=== PATIENT | male | born 1955 | race African-American/Black ===

== ENCOUNTER 2022-10-25 08:02 | Outpatient (CLI) | payer MEDICARE, BC | END 2022-10-25 08:03 | disposition home or self-care (01) | LOC: BICULT 08:02 | PROVIDERS: ATTEND Internal Medicine Nephrology | DX: I12.9 Hypertensive chronic kidney disease with stage 1 through stage 4 chronic kidney disease, or unspecified chronic kidney disease (principal); N28.1 Cyst of kidney, acquired; N18.9 Chronic kidney disease, unspecified | CPT/HCPCS: 76770; 93975 ==

== ENCOUNTER 2024-07-07 09:11 | Inpatient (IN) | payer MEDICARE ==
[2024-07-07] MEDS ORDERED: Lorazepam 2 MG/ML VIAL ONE (09:38)
[2024-07-07] MEDS ORDERED: hydrALAZINE 20 MG/ML VIAL ONE ×2 (09:38→14:05)
[2024-07-07 10:00] LABS: #Basophils 0.04 10x3/uL (0.0-0.2); %Basophils 0.5 % (0.0-1.0); %Eosinophils 4.4 % (0.0-10.0); %Monocytes 9.5 % (0.0-10.0); %Neutrophils 51.3 % (42.0-75.0); Hematocrit 25.7 % (42.0-52.0); Hemoglobin 8.3 g/dL (14.0-18.0); Mean Corpuscular HGB CONC 32.3 g/dL (32.0-36.0); Mean Corpuscular Hemoglobin 24.9 pg (27.0-31.0); Mean Corpuscular Volume 76.9 fL (78.0-98.0); Mean Platelet Volume 10.3 fL (7.4-10.4); Platelet Count 192 10x3/uL (130-400); RBC Distribution Width 19.9 % (11.5-14.5); Red Blood Cell (RBC) Count 3.34 mill/uL (4.70-6.10)
[2024-07-07 10:18] LABS: ALT (SGPT) 6 U/L (8-55); AST (SGOT) 7 U/L (5-34); Albumin 3.6 g/dL (3.4-4.8); Alkaline Phosphatase 45 U/L (40-110); Anion Gap 16 mmol/L (10-20); BUN (Urea Nitrogen) 77 mg/dL (8.4-25.7); Bilirubin, Total 0.4 mg/dL (0.2-1.2); Calc. Creatinine Clearance 0 mL/min (70-130); Carbon Dioxide 15 mmol/L (23-31); Chloride 110 mmol/L (98-107); Estimated GFR 7; Globulin 3.3 g/dL (2.4-3.5); Glucose 107 mg/dL (83-110); Lipase 27 U/L (8-78); Potassium 3.3 mmol/L (3.5-5.1); Protein, Total 6.9 g/dL (5.8-8.1); Sodium 138 mmol/L (136-145)
[2024-07-07 10:20] LABS: Troponin I 0.083 ng/mL (< 0.028)
[2024-07-07] MEDS ORDERED: Acetaminophen 325 MG TAB PO PRN (10:52)
[2024-07-07] MEDS ORDERED: Ondansetron ODT 4 MG TAB PO PRN (10:52)
[2024-07-07] MEDS ORDERED: Calcium Carbonate 500 MG ChewTAB PO PRN (10:52)
[2024-07-07] MEDS ORDERED: HYDROcodone/Acetaminophen 7.5/325 mg Tablet ONE (15:05)
[2024-07-07] MEDS: HYDROcodone/Acetaminophen 7.5/325 mg Tablet PO PRN (15:08)
[2024-07-07] MEDS: hydrALAZINE 20 MG/ML VIAL SLOW IVP PRN (15:09)
[2024-07-07 17:45] VITALS: BMI 20.9
[2024-07-07] MEDS: Minoxidil 10 MG TAB PO SCH (18:38)
[2024-07-07] MEDS: ALPRAZolam 1 MG TAB PO PRN (22:31)
[2024-07-08 04:49] LABS: #Basophils Less than 0.03 10x3/uL (0.0-0.2); %Basophils 0.3 % (0.0-1.0); %Eosinophils 2.8 % (0.0-10.0); %Lymphocytes 26.2 % (21.0-51.0); %Monocytes 7.7 % (0.0-10.0); %Neutrophils 62.7 % (42.0-75.0); Hematocrit 26.1 % (42.0-52.0); Hemoglobin 8.3 g/dL (14.0-18.0); Mean Corpuscular HGB CONC 31.8 g/dL (32.0-36.0); Mean Corpuscular Hemoglobin 24.9 pg (27.0-31.0); Mean Corpuscular Volume 78.4 fL (78.0-98.0); Mean Platelet Volume 10.4 fL (7.4-10.4); Platelet Count 171 10x3/uL (130-400); RBC Distribution Width 20.2 % (11.5-14.5); Red Blood Cell (RBC) Count 3.33 mill/uL (4.70-6.10)
[2024-07-08 04:52] LABS: Phosphorus 5.7 mg/dL (2.3-4.7)
[2024-07-08 04:56] LABS: ALT (SGPT) 6 U/L (8-55); AST (SGOT) 7 U/L (5-34); Albumin 3.2 g/dL (3.4-4.8); Alkaline Phosphatase 42 U/L (40-110); Anion Gap 17 mmol/L (10-20); BUN (Urea Nitrogen) 83 mg/dL (8.4-25.7); Bilirubin, Total 0.4 mg/dL (0.2-1.2); Calc. Creatinine Clearance 8 mL/min (70-130); Calcium 8.6 mg/dL (7.8-10.44); Carbon Dioxide 14 mmol/L (23-31); Chloride 110 mmol/L (98-107); Estimated GFR 6; Glucose 90 mg/dL (83-110); Potassium 3.4 mmol/L (3.5-5.1); Protein, Total 6.2 g/dL (5.8-8.1); Sodium 138 mmol/L (136-145)
[2024-07-08] MEDS: Tuberculin PPD 0.1 ML SYRINGE (10 TEST VIAL) I-DERMAL SCH (05:01)
[2024-07-08 05:19] LABS: HBSAB Concentration Less than 8.00 mIU/mL; HBsAg Index 0.32 S/CO (0-0.99); Hep B Core Total Ab NONREACTIVE (NonReactive); Hep B Core Total Index 0.12 S/CO (0-0.79); Hep B Surf AB NONREACTIVE (NonReactive); Hep B Surf Ag NONREACTIVE S/CO (NonReactive); Hep C IgG Ab NONREACTIVE S/CO (NonReactive); Hep C Index 0.21 S/CO (0-0.79)
[2024-07-08] MEDS ORDERED: Ferrous Sulfate 325 MG TAB PO SCH (08:00)
[2024-07-08] MEDS: Sevelamer Carbonate 800 MG TAB PO SCH (08:43)
[2024-07-08] MEDS: Ferrous Sulfate 325 MG TAB PO SCH (08:52)
[2024-07-08] MEDS: Calcitriol 0.25 MCG CAP PO SCH (08:52)
[2024-07-08] MEDS: Minoxidil 10 MG TAB PO SCH (08:52)
[2024-07-08] MEDS: Lisinopril 20 MG TAB PO SCH (08:52)
[2024-07-08] MEDS: Amlodipine 5 MG TAB PO SCH (08:52)
[2024-07-08] MEDS ORDERED: Chlorthalidone 25 MG TAB PO SCH (09:00)
[2024-07-08] MEDS ORDERED: Lisinopril 10 MG TAB PO SCH (09:00)
[2024-07-08] MEDS: Atenolol 50 MG TAB PO SCH ×2 (10:15→10:38)
[2024-07-08 11:02] VITALS: BMI 20.9
[2024-07-08] MEDS: EPOETIN ALFA-EPBX (ESRD) 10,000 UNITS/ML VIAL SC SCH (11:36)
[2024-07-09 05:10] LABS: #Basophils Less than 0.03 10x3/uL (0.0-0.2); %Basophils 0.3 % (0.0-1.0); %Eosinophils 2.3 % (0.0-10.0); %Lymphocytes 29.7 % (21.0-51.0); %Monocytes 9.8 % (0.0-10.0); %Neutrophils 57.7 % (42.0-75.0); Hemoglobin 7.7 g/dL (14.0-18.0); Mean Corpuscular HGB CONC 32.1 g/dL (32.0-36.0); Mean Corpuscular Hemoglobin 24.8 pg (27.0-31.0); Mean Corpuscular Volume 77.4 fL (78.0-98.0); Mean Platelet Volume 10.2 fL (7.4-10.4); Platelet Count 168 10x3/uL (130-400); RBC Distribution Width 20.3 % (11.5-14.5)
[2024-07-09 06:06] LABS: Anion Gap 18 mmol/L (10-20); BUN (Urea Nitrogen) 87 mg/dL (8.4-25.7); Calc. Creatinine Clearance 7 mL/min (70-130); Calcium 8.5 mg/dL (7.8-10.44); Carbon Dioxide 15 mmol/L (23-31); Chloride 108 mmol/L (98-107); Estimated GFR 5; Glucose 108 mg/dL (83-110); Potassium 3.2 mmol/L (3.5-5.1); Sodium 138 mmol/L (136-145)
[2024-07-09] MEDS: Atenolol 50 MG TAB PO SCH (07:58)
[2024-07-09] MEDS: FLU (Fluad Triv) TS24-25 (65UP)/MF59C/PF 45 MCG/0.5 ML Syringe IM ONE (07:59)
[2024-07-09] MEDS ORDERED: Heparin 10,000 UNITS/ 10 ML VIAL ONE (10:49)
[2024-07-10 04:04] LABS: #Basophils 0.03 10x3/uL (0.0-0.2); %Basophils 0.4 % (0.0-1.0); %Eosinophils 3.1 % (0.0-10.0); %Lymphocytes 24.5 % (21.0-51.0); %Monocytes 11.2 % (0.0-10.0); %Neutrophils 60.5 % (42.0-75.0); Hematocrit 23.8 % (42.0-52.0); Hemoglobin 7.5 g/dL (14.0-18.0); Mean Corpuscular HGB CONC 31.5 g/dL (32.0-36.0); Mean Corpuscular Hemoglobin 24.8 pg (27.0-31.0); Mean Corpuscular Volume 78.8 fL (78.0-98.0); Mean Platelet Volume 10.5 fL (7.4-10.4); Platelet Count 167 10x3/uL (130-400); RBC Distribution Width 20.3 % (11.5-14.5); Red Blood Cell (RBC) Count 3.02 mill/uL (4.70-6.10)
[2024-07-10 04:08] LABS: Anion Gap 14 mmol/L (10-20); BUN (Urea Nitrogen) 69 mg/dL (8.4-25.7); Calc. Creatinine Clearance 8 mL/min (70-130); Calcium 8.6 mg/dL (7.8-10.44); Carbon Dioxide 21 mmol/L (23-31); Chloride 106 mmol/L (98-107); Estimated GFR 7; Glucose 119 mg/dL (83-110); Potassium 3.2 mmol/L (3.5-5.1); Sodium 138 mmol/L (136-145)
[2024-07-10] MEDS: READ PPD TEST SITE PO SCH (09:28)
[2024-07-10 09:34] LABS: Iron 45 ug/dL (65-175); Iron Binding Capacity, Total 165 mcg/dL (261-462)
[2024-07-10] MEDS: Potassium Chloride 20 MEQ TAB PO SCH (12:00)
[2024-07-10 14:09] LABS: Magnesium 1.5 mg/dL (1.6-2.6)
[2024-07-11 05:54] LABS: #Basophils 0.04 10x3/uL (0.0-0.2); %Basophils 0.5 % (0.0-1.0); %Eosinophils 3.8 % (0.0-10.0); %Lymphocytes 29.1 % (21.0-51.0); %Monocytes 14.4 % (0.0-10.0); %Neutrophils 52.1 % (42.0-75.0); Hematocrit 26.1 % (42.0-52.0); Hemoglobin 8.1 g/dL (14.0-18.0); Mean Corpuscular Hemoglobin 24.8 pg (27.0-31.0); Mean Corpuscular Volume 79.8 fL (78.0-98.0); Mean Platelet Volume 10.7 fL (7.4-10.4); Platelet Count 163 10x3/uL (130-400); RBC Distribution Width 20.4 % (11.5-14.5); Red Blood Cell (RBC) Count 3.27 mill/uL (4.70-6.10)
[2024-07-11 06:56] LABS: Anion Gap 14 mmol/L (10-20); BUN (Urea Nitrogen) 37 mg/dL (8.4-25.7); Calc. Creatinine Clearance 11 mL/min (70-130); Carbon Dioxide 23 mmol/L (23-31); Chloride 104 mmol/L (98-107); Estimated GFR 10; Glucose 106 mg/dL (83-110); Magnesium 1.6 mg/dL (1.6-2.6); Potassium 3.4 mmol/L (3.5-5.1); Sodium 138 mmol/L (136-145)
[2024-07-11] MEDS: Lisinopril 20 MG TAB PO SCH (10:29)
[2024-07-11] MEDS: Magnesium Oxide 400 MG TAB PO SCH (10:30)
[2024-07-11] MEDS: Sodium Ferric Gluconate 250 MG in Sodium Chloride 0.9% 250 ML 250 ML IVPB SCH (11:19)
[2024-07-11] MEDS: Iron Sucrose Complex 200 MG in Sodium Chloride 0.9% 100 ML IVPB SCH (11:37)
[2024-07-11] MEDS: Minoxidil 10 MG TAB PO SCH (19:54)
[2024-07-12 04:27] LABS: #Basophils 0.03 10x3/uL (0.0-0.2); %Basophils 0.4 % (0.0-1.0); %Eosinophils 4.6 % (0.0-10.0); %Lymphocytes 23.2 % (21.0-51.0); %Monocytes 13.9 % (0.0-10.0); %Neutrophils 57.6 % (42.0-75.0); Hematocrit 25.9 % (42.0-52.0); Hemoglobin 7.9 g/dL (14.0-18.0); Mean Corpuscular HGB CONC 30.5 g/dL (32.0-36.0); Mean Corpuscular Hemoglobin 24.8 pg (27.0-31.0); Mean Corpuscular Volume 81.2 fL (78.0-98.0); Mean Platelet Volume 10.2 fL (7.4-10.4); Platelet Count 180 10x3/uL (130-400); RBC Distribution Width 20.1 % (11.5-14.5); Red Blood Cell (RBC) Count 3.19 mill/uL (4.70-6.10)
[2024-07-12 04:35] LABS: Anion Gap 12 mmol/L (10-20); BUN (Urea Nitrogen) 47 mg/dL (8.4-25.7); Calc. Creatinine Clearance 10 mL/min (70-130); Calcium 9.1 mg/dL (7.8-10.44); Carbon Dioxide 25 mmol/L (23-31); Chloride 102 mmol/L (98-107); Estimated GFR 8; Glucose 102 mg/dL (83-110); Potassium 3.6 mmol/L (3.5-5.1); Sodium 135 mmol/L (136-145)
[2024-07-12] MEDS ORDERED: EPINEPHrine 1 MG/ML VIAL ONE (06:56)
[2024-07-12] MEDS ORDERED: Lidocaine 2% PF 5 ML VIAL ONE (06:56)
[2024-07-12] MEDS ORDERED: Heparin 10,000 UNITS/ 10 ML VIAL ONE (06:56)
[2024-07-12] MEDS ORDERED: Bupivacaine 0.25% HCL 30 ML VIAL ONE (06:56)
[2024-07-12] MEDS ORDERED: PROPOFOL 20 ML ONE (07:19)
[2024-07-12] MEDS ORDERED: fentaNYL 50 mcg/mL 1 mL Vial ONE (07:20)
[2024-07-12] MEDS ORDERED: Midazolam HCl 2 mg/2 ml Vial ONE (07:20)
[2024-07-12] MEDS ORDERED: Sodium Chloride 0.9% 100 ML ONE (07:23)
[2024-07-12] MEDS ORDERED: CEFAZOLIN 2 GM VIAL ONE (07:23)
[2024-07-12] MEDS ORDERED: PHENYLEPHRINE-NS 100 MCG/ML 10 ML SYRINGE ONE (07:45)
[2024-07-12] MEDS ORDERED: Ondansetron PF 4 MG/2 ML Vial ONE (07:45)
[2024-07-12] MEDS ORDERED: Dexamethasone 20 MG/5 ML VIAL ONE (07:45)
[2024-07-12] MEDS ORDERED: ePHEDrine Sulfate 50 MG/10 ML VIAL ONE (07:56)
[2024-07-12] MEDS: Lisinopril 20 MG TAB PO SCH (09:46)
[2024-07-12] MEDS: Magnesium Oxide 400 MG TAB PO SCH (09:48)
[2024-07-13 03:33] LABS: #Basophils Less than 0.03 10x3/uL (0.0-0.2); #Eosinophils Less than 0.03 10x3/uL (0.0-0.7); %Basophils 0.1 % (0.0-1.0); %Lymphocytes 19.9 % (21.0-51.0); %Neutrophils 68.6 % (42.0-75.0); Hematocrit 26.1 % (42.0-52.0); Hemoglobin 8.1 g/dL (14.0-18.0); Mean Corpuscular Hemoglobin 24.9 pg (27.0-31.0); Mean Corpuscular Volume 80.3 fL (78.0-98.0); Platelet Count 233 10x3/uL (130-400); RBC Distribution Width 19.8 % (11.5-14.5); Red Blood Cell (RBC) Count 3.25 mill/uL (4.70-6.10)
[2024-07-13 03:55] LABS: Anion Gap 16 mmol/L (10-20); BUN (Urea Nitrogen) 58 mg/dL (8.4-25.7); Calc. Creatinine Clearance 8 mL/min (70-130); Calcium 9.6 mg/dL (7.8-10.44); Carbon Dioxide 24 mmol/L (23-31); Chloride 103 mmol/L (98-107); Estimated GFR 7; Glucose 131 mg/dL (83-110); Potassium 4.4 mmol/L (3.5-5.1); Sodium 139 mmol/L (136-145)
[2024-07-13] MEDS ORDERED: Fioricet 325/50/40 mg Tablet PO PRN (10:12)
[2024-07-13] MEDS: Fioricet 325/50/40 mg Tablet PO SCH (10:31)
[2024-07-13] MEDS ORDERED: Heparin 10,000 UNITS/ 10 ML VIAL ONE (10:36)
[2024-07-13] MEDS: Ondansetron PF 4 MG/2 ML Vial IVP PRN (11:24)
[2024-07-13] MEDS: Morphine 2 MG/ML VIAL SLOW IVP PRN (13:53)
[2024-07-13] MEDS: Lisinopril 20 MG TAB PO SCH (17:00)
[2024-07-13] MEDS: Atenolol 50 MG TAB PO SCH (17:01)
[2024-07-13] MEDS: Senokot S 8.6-50 MG TAB PO PRN (17:02)
[2024-07-13 23:44] LABS: #Basophils 0.03 10x3/uL (0.0-0.2); %Basophils 0.2 % (0.0-1.0); %Eosinophils 0.2 % (0.0-10.0); %Lymphocytes 18.5 % (21.0-51.0); %Neutrophils 69.7 % (42.0-75.0); Hematocrit 27.3 % (42.0-52.0); Hemoglobin 8.3 g/dL (14.0-18.0); Mean Corpuscular HGB CONC 30.4 g/dL (32.0-36.0); Mean Corpuscular Volume 82.2 fL (78.0-98.0); Mean Platelet Volume 9.7 fL (7.4-10.4); Platelet Count 221 10x3/uL (130-400); RBC Distribution Width 19.9 % (11.5-14.5); Red Blood Cell (RBC) Count 3.32 mill/uL (4.70-6.10)
[2024-07-13 23:59] LABS: Prothrombin Time 13.3 sec (12.0-14.7)
[2024-07-14] LABS: Lactic Acid 1.38 mmol/L (0.5-2.2)
[2024-07-14 00:10] LABS: Troponin I 0.119 ng/mL (< 0.028)
[2024-07-14 00:14] LABS: ALT (SGPT) Less than 5 U/L (8-55); AST (SGOT) 10 U/L (5-34); Albumin 3.5 g/dL (3.4-4.8); Alkaline Phosphatase 41 U/L (40-110); Anion Gap 17 mmol/L (10-20); BUN (Urea Nitrogen) 20 mg/dL (8.4-25.7); Bilirubin, Total 0.4 mg/dL (0.2-1.2); CK (CPK) 56 U/L (30-200); Calc. Creatinine Clearance 18 mL/min (70-130); Calcium 9.3 mg/dL (7.8-10.44); Carbon Dioxide 26 mmol/L (23-31); Chloride 101 mmol/L (98-107); Estimated GFR 17; Globulin 3.2 g/dL (2.4-3.5); Glucose 110 mg/dL (83-110); Magnesium 1.9 mg/dL (1.6-2.6); Potassium 4.1 mmol/L (3.5-5.1); Protein, Total 6.7 g/dL (5.8-8.1); Sodium 140 mmol/L (136-145)
[2024-07-14 04:04] LABS: #Basophils 0.03 10x3/uL (0.0-0.2); #Eosinophils Less than 0.03 10x3/uL (0.0-0.7); %Basophils 0.3 % (0.0-1.0); %Eosinophils 0.2 % (0.0-10.0); %Lymphocytes 14.6 % (21.0-51.0); %Monocytes 10.1 % (0.0-10.0); %Neutrophils 74.5 % (42.0-75.0); Hematocrit 26.9 % (42.0-52.0); Hemoglobin 8.1 g/dL (14.0-18.0); Mean Corpuscular HGB CONC 30.1 g/dL (32.0-36.0); Mean Corpuscular Hemoglobin 24.7 pg (27.0-31.0); Mean Platelet Volume 10.3 fL (7.4-10.4); Platelet Count 238 10x3/uL (130-400); RBC Distribution Width 19.6 % (11.5-14.5); Red Blood Cell (RBC) Count 3.28 mill/uL (4.70-6.10)
[2024-07-14 04:44] LABS: Anion Gap 13 mmol/L (10-20); BUN (Urea Nitrogen) 22 mg/dL (8.4-25.7); Calc. Creatinine Clearance 16 mL/min (70-130); Calcium 9.3 mg/dL (7.8-10.44); Carbon Dioxide 29 mmol/L (23-31); Chloride 102 mmol/L (98-107); Estimated GFR 15; Glucose 104 mg/dL (83-110); Sodium 140 mmol/L (136-145)
[2024-07-14] MEDS ORDERED: Iopamidol 370 76% 100 ML VIAL ONE (07:10)
[2024-07-14] MEDS ORDERED: cloNIDine 0.3mg/24 Hour PATCH TD SCH (09:00)
[2024-07-14] MEDS ORDERED: Labetalol HCl 100 MG/20 ML VIAL SLOW IVP PRN (09:27)
[2024-07-14] MEDS: Ergocalciferol 1.25 MG(50,000 UNITS) CAP PO SCH (09:30)
[2024-07-14] MEDS: Aspirin 81 mg Enteric Coated Tablet PO SCH (09:55)
[2024-07-14 19:13] LABS: QuantiFERON-TB Gold Plus POSITIVE (Negative)
[2024-07-14] MEDS ORDERED: Bupivacaine PF 0.5% 30 ML VIAL ONE (19:50)
[2024-07-14] MEDS ORDERED: Heparin 5,000 UNITS/ML VIAL ONE (19:50)
[2024-07-14] MEDS ORDERED: EPINEPHrine 1 MG/ML VIAL ONE (19:50)
[2024-07-14] MEDS: Atorvastatin Calcium 40 MG TAB PO SCH (20:14)
[2024-07-14] MEDS ORDERED: Fentanyl 250 MCG/5 ML VIAL ONE (20:22)
[2024-07-14] MEDS ORDERED: PROPOFOL 20 ML ONE (20:22)
[2024-07-14] MEDS ORDERED: Rocuronium Bromide 10 MG/ML (10ML VIAL) ONE (20:22)
[2024-07-14] MEDS ORDERED: SUCCINYLCHOLINE/SOD CL,ISO/PF 200 MG/10 ML SYRINGE FS ONE (20:29)
[2024-07-14] MEDS ORDERED: Glycopyrrolate 0.2 MG/ML 5 ML SYRINGE ONE (20:38)
[2024-07-14] MEDS ORDERED: ePHEDrine Sulfate 50 MG/10 ML VIAL ONE (20:44)
[2024-07-14] MEDS ORDERED: Ondansetron PF 4 MG/2 ML Vial ONE (20:46)
[2024-07-14] MEDS ORDERED: Metoclopramide HCl 10 MG (2 mL) VIAL ONE (20:46)
[2024-07-14] MEDS ORDERED: SUGAMMADEX SODIUM 200 MG/2 ML VIAL ONE (20:49)
[2024-07-14 20:51] LABS: #Basophils 0.05 10x3/uL (0.0-0.2); %Basophils 0.4 % (0.0-1.0); %Eosinophils 0.5 % (0.0-10.0); %Lymphocytes 18.4 % (21.0-51.0); %Monocytes 13.6 % (0.0-10.0); %Neutrophils 66.8 % (42.0-75.0); Hematocrit 27.4 % (42.0-52.0); Hemoglobin 8.5 g/dL (14.0-18.0); Mean Corpuscular Hemoglobin 25.1 pg (27.0-31.0); Mean Corpuscular Volume 81.1 fL (78.0-98.0); Mean Platelet Volume 10.3 fL (7.4-10.4); Platelet Count 202 10x3/uL (130-400); RBC Distribution Width 20.1 % (11.5-14.5); Red Blood Cell (RBC) Count 3.38 mill/uL (4.70-6.10)
[2024-07-14] MEDS ORDERED: PHENYLEPHRINE-NS 100 MCG/ML 10 ML SYRINGE ONE (20:53)
[2024-07-14] MEDS ORDERED: Ondansetron HCl/PF 4 MG/2 ML Vial IVP PRN (21:24)
[2024-07-14] MEDS ORDERED: Morphine Sulfate 2 MG/ML SYRINGE SLOW IVP PRN (21:24)
[2024-07-14] MEDS ORDERED: Promethazine HCl 25 MG/ML VIAL IM PRN (21:24)
[2024-07-15 04:46] LABS: #Basophils Less than 0.03 10x3/uL (0.0-0.2); %Basophils 0.2 % (0.0-1.0); %Eosinophils 0.3 % (0.0-10.0); %Lymphocytes 20.9 % (21.0-51.0); %Monocytes 14.4 % (0.0-10.0); %Neutrophils 63.8 % (42.0-75.0); Hematocrit 23.6 % (42.0-52.0); Hemoglobin 7.2 g/dL (14.0-18.0); Mean Corpuscular HGB CONC 30.5 g/dL (32.0-36.0); Mean Corpuscular Hemoglobin 25.2 pg (27.0-31.0); Mean Corpuscular Volume 82.5 fL (78.0-98.0); Platelet Count 189 10x3/uL (130-400); Red Blood Cell (RBC) Count 2.86 mill/uL (4.70-6.10)
[2024-07-15 04:52] LABS: Hemoglobin A1c 5.4 % (4.0-6.0)
[2024-07-15 05:13] LABS: Anion Gap 14 mmol/L (10-20); BUN (Urea Nitrogen) 33 mg/dL (8.4-25.7); Calc. Creatinine Clearance 13 mL/min (70-130); Calcium 8.9 mg/dL (7.8-10.44); Carbon Dioxide 27 mmol/L (23-31); Cardiac Risk 2.9 (Less than 4.5); Chloride 101 mmol/L (98-107); Cholesterol 86 mg/dl (< 200 Desired); Estimated GFR 11; Glucose 105 mg/dL (83-110); HDL Cholesterol 30 mg/dL (>60 Neg Risk); LDL Cholesterol, Calculated 38 mg/dL; Potassium 4.6 mmol/L (3.5-5.1); Sodium 137 mmol/L (136-145); Triglycerides 89 mg/dL (Less than 150)
[2024-07-15] MEDS: Aspirin 81 mg Enteric Coated Tablet PO SCH (08:34)
[2024-07-15 16:40] VITALS: BP 154/70; TEMP 98.3
== END 2024-07-15 17:48 | disposition home or self-care (01) | DRG 673 ==
LOC: ERS 09:11 → SUATTDRO 09:11 → ERHOLD 10:52 → 2SW 17:23
PROVIDERS: ADMIT Internal Medicine; ATTEND Family Medicine
PROC: 06HM33Z Insertion of Infusion Device into Right Femoral Vein, Percutaneous Approach (ICD-10-PCS; 2024-07-08)
PROC: 5A1D70Z Performance of Urinary Filtration, Intermittent, Less than 6 Hours Per Day (ICD-10-PCS; 2024-07-09)
PROC: 0JHD3XZ Insertion of Tunneled Vascular Access Device into Right Upper Arm Subcutaneous Tissue and Fascia, Percutaneous Approach (ICD-10-PCS; principal; 2024-07-12)
PROC: 05HM33Z Insertion of Infusion Device into Right Internal Jugular Vein, Percutaneous Approach (ICD-10-PCS; 2024-07-12)
PROC: 04QK0ZZ Repair Right Femoral Artery, Open Approach (ICD-10-PCS; 2024-07-12)
PROC: B5131ZA Fluoroscopy of Right Jugular Veins using Low Osmolar Contrast, Guidance (ICD-10-PCS; 2024-07-12)
DX: I12.0 Hypertensive chronic kidney disease with stage 5 chronic kidney disease or end stage renal disease (principal); I63.9 Cerebral infarction, unspecified; S75.001A Unspecified injury of femoral artery, right leg, initial encounter; N25.81 Secondary hyperparathyroidism of renal origin; F33.0 Major depressive disorder, recurrent, mild; R47.01 Aphasia; N18.6 End stage renal disease; F41.9 Anxiety disorder, unspecified; M19.90 Unspecified osteoarthritis, unspecified site; J44.9 Chronic obstructive pulmonary disease, unspecified; E83.39 Other disorders of phosphorus metabolism; E87.6 Hypokalemia; D63.1 Anemia in chronic kidney disease; E83.42 Hypomagnesemia; G89.29 Other chronic pain; R51.9 Headache, unspecified; R29.810 Facial weakness; R47.81 Slurred speech; Z86.11 Personal history of tuberculosis; Z88.8 Allergy status to other drugs, medicaments and biological substances; Z79.899 Other long term (current) drug therapy; Z79.891 Long term (current) use of opiate analgesic; Y83.8 Other surgical procedures as the cause of abnormal reaction of the patient, or of later complication, without mention of misadventure at the time of the procedure
CPT/HCPCS: 36415; 36416; 36430; 70450; 70496; 70498; 70551; 71045; 80048; 80053; 80061; 82550; 82728; 83036; 83540; 83550; 83605; 83690; 83735; 83880; 83970; 84100; 84484; 85025; 85610; 85730; 86480; 86580; 86704; 86706; 86803; 86850; 86900; 86901; 87340; 90653; 90935; 93005; 93010; 93306; 96374; 96375; C1752; G0257; J0171; J0360; J0665; J1100; J1644; J1756; J2060; J2250; J2272; J2405; J2704; J2765; J3010; P9016; Q5105; Q9967

== ENCOUNTER 2024-07-31 16:24 | Emergency (ER) | payer MEDICARE ==
[2024-07-31 17:35] LABS: #Basophils 0.04 10x3/uL (0.0-0.2); %Basophils 0.4 % (0.0-1.0); %Eosinophils 2.4 % (0.0-10.0); %Lymphocytes 23.7 % (21.0-51.0); %Monocytes 13.3 % (0.0-10.0); %Neutrophils 59.6 % (42.0-75.0); Hematocrit 26.5 % (42.0-52.0); Hemoglobin 7.9 g/dL (14.0-18.0); Mean Corpuscular HGB CONC 29.8 g/dL (32.0-36.0); Mean Corpuscular Volume 90.4 fL (78.0-98.0); Platelet Count 192 10x3/uL (130-400); RBC Distribution Width 18.7 % (11.5-14.5); Red Blood Cell (RBC) Count 2.93 mill/uL (4.70-6.10)
[2024-07-31 17:48] LABS: ALT (SGPT) 16 U/L (8-55); AST (SGOT) 13 U/L (5-34); Albumin 3.5 g/dL (3.4-4.8); Alkaline Phosphatase 58 U/L (40-110); Anion Gap 14 mmol/L (10-20); BUN (Urea Nitrogen) 11 mg/dL (8.4-25.7); Bilirubin, Total 0.3 mg/dL (0.2-1.2); Calc. Creatinine Clearance 0 mL/min (70-130); Carbon Dioxide 27 mmol/L (23-31); Chloride 99 mmol/L (98-107); Estimated GFR 30; Globulin 3.5 g/dL (2.4-3.5); Glucose 98 mg/dL (83-110); Potassium 2.9 mmol/L (3.5-5.1); Sodium 137 mmol/L (136-145)
[2024-07-31] MEDS ORDERED: HYDROcodone/Acetaminophen 10/325 mg Tablet ONE (17:48)
[2024-07-31 17:50] LABS: PTT 35.9 sec (22.9-36.1); Prothrombin Time 13.3 sec (12.0-14.7)
== END 2024-07-31 18:38 | disposition home or self-care (01) ==
LOC: ERS 16:24
DX: D50.0 Iron deficiency anemia secondary to blood loss (chronic) (principal); I10 Essential (primary) hypertension
CPT/HCPCS: 80053; 85610; 85730; 86850; 86900; 86901; 99284

== ENCOUNTER 2025-02-22 16:53 | Emergency (ER) | payer MEDICARE ==
[2025-02-22] MEDS ORDERED: hydrALAZINE 20 MG/ML VIAL ONE (17:46)
[2025-02-22 17:57] LABS: #Basophils 0.04 10x3/uL (0.0-0.2); %Basophils 0.5 % (0.0-1.0); %Eosinophils 3.3 % (0.0-10.0); %Lymphocytes 22.9 % (21.0-51.0); Hematocrit 42.1 % (42.0-52.0); Hemoglobin 12.8 g/dL (14.0-18.0); Mean Corpuscular HGB CONC 30.4 g/dL (32.0-36.0); Mean Corpuscular Hemoglobin 26.9 pg (27.0-31.0); Mean Corpuscular Volume 88.4 fL (78.0-98.0); Mean Platelet Volume 9.6 fL (7.4-10.4); Platelet Count 180 10x3/uL (130-400); RBC Distribution Width 18.9 % (11.5-14.5); Red Blood Cell (RBC) Count 4.76 mill/uL (4.70-6.10)
[2025-02-22 18:21] LABS: ALT (SGPT) 8 U/L (Less than 45); AST (SGOT) 15 U/L (11-34); Albumin 3.8 g/dL (3.1-4.5); Alkaline Phosphatase 65 U/L (40-110); Anion Gap 20 mmol/L (10-20); BUN (Urea Nitrogen) 22 mg/dL (8.4-25.7); Bilirubin, Total 0.5 mg/dL (0.3-1.2); Calc. Creatinine Clearance 0 mL/min (70-130); Calcium 9.5 mg/dL (7.8-10.44); Carbon Dioxide 23 mmol/L (23-31); Chloride 98 mmol/L (98-107); Estimated GFR 9; Globulin 3.8 g/dL (2.4-3.5); Glucose 99 mg/dL (83-110); Potassium 3.8 mmol/L (3.5-5.1); Protein, Total 7.6 g/dL (5.8-8.1); Sodium 137 mmol/L (136-145)
== END 2025-02-22 20:17 | disposition home or self-care (01) ==
LOC: ERS 16:53
DX: I12.0 Hypertensive chronic kidney disease with stage 5 chronic kidney disease or end stage renal disease (principal); N18.6 End stage renal disease; M25.561 Pain in right knee; Z99.2 Dependence on renal dialysis; Z55.0 Illiteracy and low-level literacy; Z79.899 Other long term (current) drug therapy; M79.661 Pain in right lower leg
CPT/HCPCS: 73564; 80053; 85025; 93005; 93971; 96374; 99284; J0360; 36415